=== PATIENT | female | born 1970 ===

== ENCOUNTER 2021-11-07 10:03 | Day surgery (SDC) | payer OTHER ==
[~2021-11-07] VITALS: Ht 167.6 cm; Wt 81.6 kg
[~2021-11-07 10:03] MED LIST: ALDACTONE100 MG PO; CLONAZEPAM0.5 MG PO; COVARYX H.S. T1 EACH PO; LOVAZA1 GM PO; MULTIPLE VITAM1 EAC2 PO; PROMETRIUM200 MG PO; SUMATRIPTAN SUC25 MG PO; TESTOPEL75 MG IL
== END 2021-11-07 16:35 | disposition home or self-care (01) ==
LOC: CIR.AMB 10:03
PROVIDERS: ATTEND Otolaryngology Otology & Neurotology
DX: H91.21 Sudden idiopathic hearing loss, right ear (principal); Z20.822 Contact with and (suspected) exposure to COVID-19; Z91.013 Allergy to seafood; Z88.6 Allergy status to analgesic agent; E78.00 Pure hypercholesterolemia, unspecified; G43.909 Migraine, unspecified, not intractable, without status migrainosus